=== PATIENT | male | born 1975 | race Hispanic/Latino ===

== ENCOUNTER 2020-05-18 13:00 | Inpatient (IN) | payer OTHER, SELFPAY ==
[2020-05-18 13:53] LABS: #Basophils 0.1 thou/uL (0.0-0.2); #Monocytes 0.3 thou/uL (0.11-0.59); #Neutrophils 5.5 thou/uL (1.40-6.50); %Basophils 0.8 % (0.0-1.0); %Eosinophils 0.1 % (0.0-10.0); %Lymphocytes 14.9 % (21.0-51.0); %Neutrophils 80.3 % (42.0-75.0); Hemoglobin 12.9 g/dL (14.0-18.0); Mean Corpuscular HGB CONC 35.4 g/dL (32.0-36.0); Mean Corpuscular Hemoglobin 33.3 pg (27.0-31.0); Mean Corpuscular Volume 94.2 fL (78.0-98.0); Mean Platelet Volume 7.2 fL (7.4-10.4); Platelet Count 203 thou/uL (130-400); RBC Distribution Width 11.6 % (11.5-14.5); Red Blood Cell (RBC) Count 3.88 mill/uL (4.70-6.10); White Blood Cell (WBC) Count 6.9 thou/uL (4.8-10.8)
[2020-05-18 14:18] LABS: ALT (SGPT) 35 U/L (8-55); AST (SGOT) 32 U/L (5-34); Albumin 3.2 g/dL (3.5-5.0); Alkaline Phosphatase 74 U/L (40-110); Anion Gap 16 mmol/L (10-20); BUN (Urea Nitrogen) 13 mg/dL (8.9-20.6); Bilirubin, Total 0.7 mg/dL (0.2-1.2); Calc. Creatinine Clearance 0 mL/min (70-130); Calcium 7.8 mg/dL (7.8-10.44); Carbon Dioxide 21 mmol/L (22-29); Chloride 100 mmol/L (98-107); Estimated GFR-MDRD 71; Globulin 3.8 g/dL (2.4-3.5); Glucose 309 mg/dL (70-105); Lipase 32 U/L (8-78); Potassium 3.9 mmol/L (3.5-5.1); Sodium 133 mmol/L (136-145)
[2020-05-18] MEDS ORDERED: cefTRIAXone\\ROCEPHIN 2 GM VIAL ONE (14:39)
[2020-05-18] MEDS ORDERED: Acetaminophen 500 MG TAB ONE (14:39)
[2020-05-18] MEDS ORDERED: Dexamethasone 10 MG/ML VIAL ONE (14:43)
[2020-05-18] MEDS ORDERED: Azithromycin 500 MG VIAL ONE (14:43)
[2020-05-18] MEDS ORDERED: Albuterol 200 PUFF (6.7GM INHALER) ONE (14:44)
--- NOTE | 2020-05-18 14:56 | RAD ---
XR Chest 1 View Portable History: Shortness of breath. COVID positive Comparison: Radiograph 2008 Findings: Extensive perihilar peripheral opacities throughout the lungs. No pneumothorax. No signific ant effusion. Increased left pericardiophrenic fat pad. No acute osseous abnormality. Impression: Common imaging findings of COVID-19 pneumonia. Other disease processes such as influenza pneumonia and organizing pneumonia, however can have a similar imaging appearance.
[2020-05-18 15:07] LABS: Actual Bicarbonate (HCO3a) 18.1 mEq/L (22-28); Analyzer IN Cardio ER; Base Excess (BEa) -2.6 mEq/L (-2.0 to +3.0); Calcium, Ionized (arterial) 1.05 mmol/L (1.12-1.30); Carboxyhemoglobin (COHb) 0.9 gm% (0.0-3.0); Hemoglobin (Hb) 15.7 g/dL (14.0-18.0); Potassium - ABG Lab 3.98 mmol/L (3.70-5.30); pH, Arterial 7.51 (7.35-7.45)
[2020-05-18 15:22] LABS: CO2 Tension 23.1 mmHg (35.0-45.0); O2 Tension (PaO2), arterial 42.2 mmHg (80.0-100.0)
[2020-05-18 15:23] LABS: ALV-art Gradient 356.725 (0-20); Puncture Site LRA
[2020-05-18 16:55] LABS: Lactic Acid 2.1 mmol/L (0.5-2.2)
[2020-05-18 18:09] VITALS: BMI 47.9
[2020-05-18] MEDS ORDERED: Albuterol 200 PUFF (6.7GM INHALER) INH PRN (18:26)
[2020-05-18] MEDS ORDERED: Acetaminophen 325 MG TAB PO PRN (18:26)
[2020-05-18] MEDS ORDERED: Ondansetron ODT 4 MG TAB PO PRN (18:29)
[2020-05-18] MEDS ORDERED: HYDROcodone/Acetaminophen 5/325 mg Tablet PO PRN (18:29)
[2020-05-18] MEDS ORDERED: Ondansetron PF 4 MG/2 ML Vial IVP PRN (18:29)
[2020-05-18] MEDS ORDERED: Sodium Chloride 0.9% 1,000 ML IV SCH (18:30)
--- NOTE | 2020-05-18 18:34 | PDOC.HHP ---
Hospitalist HPI - History of Present Illness fever chills sob History of Present Illness: Case of an 44 y/o male with pmhx of DM on metformin and htn who comes to hospital due to sob. patient refers he was on his usual state of health until 1 week ago when he started with fever chills and cough, he got tested for positive which came back positive and sent home to quarantine. patient states that 3-4 days ago he started feeling worse and started with dyspnea. dyspnea kept progressing until today when patient got scared and called ems. at the ED patient was diagnose with respiratory failure and hospitalist was called for further evaluation and management. patient hypoxic in low 80s required 80% 02 with high flow to get adequate saturation. pt also complained of nausea diarrhea and abdominal pain Hospitalist ROS - Review of Systems All other systems reviewed; all pertinent +/- noted in HPI/Subj Hospitalist History - Past Medical History Source: patient Cardiac: reports: HTN Endocrine: reports: Diabetes - Past Surgical History Past Surgical History: reports: no pertinent history - Family History Family History: reports: diabetes mellitus - Social History Smoking Status: Never smoker Alcohol: reports: Occassional Drugs: reports: none Living Situation: With Family Activity level: independent ambulation - Exam General Appearance: awake alert, ill appearing Eye: PERRL, anicteric sclera ENT: normocephalic atraumatic, no oropharyngeal lesions Neck: supple, symmetric, no JVD Heart: RRR, no murmur, no gallops Respiratory: CTAB, no wheezes, no rales, no ronchi, tachypneic Gastrointestinal: soft, non-tender, non-distended Extremities: no cyanosis, no clubbing, no edema Skin: normal turgor, no lesions, no rashes Neurological: cranial nerve grossly intact, normal sensation to touch Musculoskeletal: normal tone, normal strength, no muscle wasting Psychiatric: normal affect, normal behavior, A&O x 3 Hospitalist Results - Labs Result Diagrams: 05/18/20 13:35 05/18/20 13:35 Lab results: WBC 6.9 thou/uL (4.8-10.8) 05/18/20 13:35 Hgb 12.9 g/dL (14.0-18.0) L 05/18/20 13:35 Hct 36.6 % (42.0-52.0) L 05/18/20 13:35 MCV 94.2 fL (78.0-98.0) 05/18/20 13:35 Plt Count 203 thou/uL (130-400) 05/18/20 13:35 Neutrophils % 80.3 % (42.0-75.0) H 05/18/20 13:35 ABG pH 7.51 (7.35-7.45) H 05/18/20 15:00 ABG pCO2 23.1 mmHg (35.0-45.0) L* 05/18/20 15:00 ABG pO2 42.2 mmHg (80.0-100.0) L* 05/18/20 15:00 Sodium 133 mmol/L (136-145) L 05/18/20 13:35 Potassium 3.9 mmol/L (3.5-5.1) 05/18/20 13:35 Chloride 100 mmol/L (98-107) 05/18/20 13:35 Carbon Dioxide 21 mmol/L (22-29) L 05/18/20 13:35 BUN 13 mg/dL (8.9-20.6) 05/18/20 13:35 Creatinine 1.13 mg/dL (0.7-1.3) 05/18/20 13:35 Glucose 309 mg/dL (70-105) H 05/18/20 13:35 Lactic Acid 2.1 mmol/L (0.5-2.2) 05/18/20 16:28 Calcium 7.8 mg/dL (7.8-10.44) 05/18/20 13:35 Total Bilirubin 0.7 mg/dL (0.2-1.2) 05/18/20 13:35 AST 32 U/L (5-34) 05/18/20 13:35 ALT 35 U/L (8-55) 05/18/20 13:35 Alkaline Phosphatase 74 U/L (40-110) 05/18/20 13:35 Creatine Kinase 149 U/L (30-200) 05/18/20 13:33 Troponin I Less than 0.010 ng/mL (< 0.028) 05/18/20 13:33 Serum Total Protein 7.0 g/dL (6.0-8.3) 05/18/20 13:35 Albumin 3.2 g/dL (3.5-5.0) L 05/18/20 13:35 Lipase 32 U/L (8-78) 05/18/20 13:35 - Radiology Interpretation Chest x-ray Additional Comment: b/l peripheral opacities Hospitalist H&P A/P - Problem (1) Respiratory failure with hypoxia Code(s): J96.91 - RESPIRATORY FAILURE, UNSPECIFIED WITH HYPOXIA Status: Acute (2) Uncontrolled diabetes mellitus Code(s): E11.65 - TYPE 2 DIABETES MELLITUS WITH HYPERGLYCEMIA Status: Acute (3) HTN (hypertension) Code(s): I10 - ESSENTIAL (PRIMARY) HYPERTENSION Status: Acute (4) COVID-19 Code(s): U07.1 - COVID-19 Status: Acute (5) Morbidly obese Code(s): E66.01 - MORBID (SEVERE) OBESITY DUE TO EXCESS CALORIES Status: Acute - Plan Plan: 44y/o male with stated pmhx who comes to hospital due to respiratory failure, covid 19 + 1 week ago - rocephin + azythromycin prophylaxis - low dose steroids 6mg dexamethsone daily - high flow 02 supplementation, adjust as necessary - pulm / crit consulted - accu checks and ss - dvt prophylaxis - symptomatic prn tx for fever, nausea and pain -holding b/p medication until pt more stable
[2020-05-18] MEDS ORDERED: Dextrose 50% Abboject 50 ML SYRINGE SLOW IVP PRN (20:23)
[2020-05-18] MEDS ORDERED: Dextrose 5% in Water 1,000 ML IV PRN (20:23)
[2020-05-18] MEDS ORDERED: Insulin Glargine 10 UNITS in Pre-Filled Syringe 1 EACH SC SCH (21:00)
[2020-05-19 04:20] LABS: ALT (SGPT) 36 U/L (8-55); AST (SGOT) 29 U/L (5-34); Albumin 3.3 g/dL (3.5-5.0); Alkaline Phosphatase 79 U/L (40-110); Anion Gap 16 mmol/L (10-20); BUN (Urea Nitrogen) 16 mg/dL (8.9-20.6); Bilirubin, Total 0.6 mg/dL (0.2-1.2); Calc. Creatinine Clearance 209 mL/min (70-130); Carbon Dioxide 17 mmol/L (22-29); Chloride 102 mmol/L (98-107); Estimated GFR-MDRD 87; Globulin 3.9 g/dL (2.4-3.5); Glucose 377 mg/dL (70-105); Potassium 4.3 mmol/L (3.5-5.1); Protein, Total 7.2 g/dL (6.0-8.3); Sodium 131 mmol/L (136-145)
[2020-05-19 05:04] LABS: Band 10 % (5-11); Hemoglobin 13.1 g/dL (14.0-18.0); Lymphocytes 14 % (21-51); MDiff Complete? YES; Mean Corpuscular HGB CONC 33.9 g/dL (32.0-36.0); Mean Corpuscular Hemoglobin 32.1 pg (27.0-31.0); Mean Corpuscular Volume 94.7 fL (78.0-98.0); Mean Platelet Volume 7.5 fL (7.4-10.4); Monocytes 5 % (0-10); Neutrophil 71 % (42-75); Platelet Count 244 thou/uL (130-400); Platelet Morphology Comment Appears Adequate; RBC Distribution Width 11.7 % (11.5-14.5); Red Blood Cell (RBC) Count 4.09 mill/uL (4.70-6.10)
[2020-05-19] MEDS: Dexamethasone 4 mg/ml Vial SLOW IVP SCH (09:26)
[2020-05-19] MEDS: Enoxaparin Sodium 40 MG/0.4 ML SYRINGE SC SCH (09:26)
[2020-05-19] MEDS: HumaLOG 300 UNITS/3 ML VIAL SC PRN ×3 (09:41→23:38)
[2020-05-19] MEDS: HYDROcodone/Acetaminophen 5/325 mg Tablet PO PRN ×2 (09:45→16:10)
--- NOTE | 2020-05-19 14:13 | PDOC.HOSPP ---
- Subjective Encounter Date: 05/19/20 Encounter Time: 14:10 Subjective: f/u for COVID-19 with resp failure requiring high-flow O2. Apparently sx and diagnosed about 10 days previously. - Objective Vital Signs & Weight: Vital Signs (12 hours) Pulse Ox 05/19/20 07:46 93 L 05/19/20 05:07 93 L Weight Admit Weight 325 lb Weight 325 lb Most Recent Monitor Data Heart Rate from ECG 88 NIBP 163/107 NIBP BP-Mean 125 Respiration from ECG 30 SpO2 93 Result Diagrams: 05/19/20 03:27 05/19/20 03:27 Additional Labs: Accuchecks 05/19/20 05/18/20 09:44 20:26 POC Glucose 374 H 383 H Radiology Reviewed by me: Yes (PCXR - bilateral perihilar infiltrates) EKG Reviewed by me: Yes (Tele - SR) Hospitalist ROS - Medication Medications: Active Medications Generic Name Dose Route Start Last Admin Trade Name Freq PRN Reason Stop Dose Admin Hydrocodone Bitart/Acetaminophen 1 tab 05/18/20 18:29 05/19/20 09:45 [place] 5/325 PO 1 tab Q4H PRN Administration Moderate Pain (4-6) Dexamethasone 6 mg 05/19/20 09:00 05/19/20 09:26 Decadron SLOW IVP 6 mg DAILY TAMICA Administration Enoxaparin Sodium 40 mg 05/19/20 09:00 05/19/20 09:26 Lovenox SC 40 mg 0900 TAMICA Administration Insulin Glargine 10 units/ 0.1 mls @ 0 mls/hr 05/18/20 21:00 05/18/20 21:29 Miscellaneous Medication SC 0.1 mls HS TAMICA Administration Insulin Human Lispro 0 units 05/18/20 20:23 05/19/20 09:41 Humalog SC 6 units .MILD SLIDING SCALE PRN Administration Mild Correctional Scale - Exam General Appearance: NAD Eye: PERRL, anicteric sclera ENT: normocephalic atraumatic, no oropharyngeal lesions Neck: supple, symmetric, no JVD, no thyromegaly, no lymphadenopathy Heart: RRR, no murmur, no gallops, no rubs, normal peripheral pulses Heart - other findings: S1, S2 Respiratory: tachypneic Respiratory - other findings: diminished bilat, occasional rhonchi Gastrointestinal: soft, non-tender, non-distended, normal bowel sounds, no palpable masses, no guarding Extremities: no cyanosis, no clubbing, no edema Skin: normal turgor, no lesions Neurological: cranial nerve grossly intact, no new deficit Musculoskeletal: normal tone, normal strength Psychiatric: normal affect, A&O x 3 Hosp A/P (1) Pneumonia due to COVID-19 virus Code(s): U07.1 - COVID-19; J12.89 - OTHER VIRAL PNEUMONIA Status: Acute Plan: Continue Rocephin/Zithromax/Dexamethasone (2) Acute respiratory failure with hypoxia Code(s): J96.01 - ACUTE RESPIRATORY FAILURE WITH HYPOXIA Status: Acute Plan: Continue high-flow O2 @ 60L/min, titrate to clinical response (3) HTN (hypertension) Code(s): I10 - ESSENTIAL (PRIMARY) HYPERTENSION Status: Chronic Qualifiers: Hypertension type: essential hypertension Qualified Code(s): I10 - Essential (primary) hypertension Plan: Start Hydralazine 25mg TID, likely resume Lisinopril prior to d/c (4) Morbidly obese Code(s): E66.01 - MORBID (SEVERE) OBESITY DUE TO EXCESS CALORIES Status: Chronic (5) Uncontrolled diabetes mellitus Code(s): E11.65 - TYPE 2 DIABETES MELLITUS WITH HYPERGLYCEMIA Status: Chronic Plan: Likely exacerbated by steroids, increase Lantus 15u HS, continue ISS, Metformin - Plan continue antibiotics, high school social studies tutor, respiratory therapy, DVT proph w/SCDs Continue pulmonary support High flow O2 support Albuterol MDI Continue Azithromycin/Rocephin/Dexamethasone OOB/ambulate Start Hydralazine 25mg TID AM lab: BMP, A1C
[2020-05-19] MEDS: cefTRIAXone\\ROCEPHIN 2 GM in Sodium Chloride 0.9% 100 ML IVPB SCH (16:07)
[2020-05-19] MEDS: hydrALAZINE 25 MG TAB PO SCH ×2 (16:08→20:13)
[2020-05-19] MEDS: metFORMIN 500 MG TAB PO SCH (16:08)
[2020-05-19] MEDS: Azithromycin 500 MG in Sodium Chloride 0.9% 250 ML 250 ML IVPB SCH (17:12)
--- NOTE | 2020-05-19 20:58 | CON ---
DATE OF CONSULTATION: 05/19/2020 REASON FOR CONSULTATION: COVID-19 pneumonia with pulmonary complications. HISTORY OF PRESENT ILLNESS: The patient is a 44-year-old male, who began feeling sick on May 09. At that time, he was working in [place]. By the time he arrived at work the next Thursday, he was short of breath and have a GI symptoms. He was swabbed for COVID, eventually told he was positive. He came back to this area and steadily been getting worse for the last week. He tells me he was admitted to the hospital here three days ago, but in actuality, it looks like he was admitted yesterday. He is currently on high-flow oxygen. He has bilateral pulmonary infiltrates. PAST MEDICAL HISTORY: 1. Hypertension. 2. Diabetes mellitus. 3. Morbid obesity. PAST SURGICAL HISTORY: None. FAMILY MEDICAL: Remarkable for diabetes mellitus. SOCIAL HISTORY: Never smoker. Very occasionally drinks alcohol. He works as a drill setup operator. Does not use illicit drugs. REVIEW OF SYSTEMS: Otherwise negative. ALLERGIES: NONE. PHYSICAL EXAMINATION: VITAL SIGNS: Temperature 98, pulse 97, O2 saturation 97% high-flow oxygen, blood pressure 170/107. The patient is 5 feet 9 inches and weighs 325 pounds. HEENT: Unremarkable. NECK: No adenopathy or JVD. LUNGS: Inspiratory crackles bilaterally. CARDIOVASCULAR: S1 and S2. Tachycardic. ABDOMEN: Soft and nontender. EXTREMITIES: No edema. LABORATORY DATA: White blood cell count 5, hematocrit 38.8, and platelet count 244. ABG; pH of 7.51, pCO2 of 23, and pO2 of 42, that was on high-flow 60% yesterday. Sodium 131, potassium 4.3, chloride 102, CO2 of 17, BUN 16, creatinine 0.9, and glucose 377. ASSESSMENT: COVID-19 pneumonia with bilateral severe infiltrates on x-ray, currently responding to high-flow oxygen. PLAN: 1. The patient is probably outside the window, where plasma transfusion would do any good. He is more than 10 days in this and probably has already made antibodies. We can check an antibody panel. 2. He is beyond the point, where Remdesivir or the IL-6 inhibitor would do any good. 3. Agree with high-flow oxygen and steroids. We will follow. 4. I have asked him to produce documentation of the positive COVID test. Job ID: [id number]
[2020-05-19] MEDS ORDERED: Insulin Glargine 15 UNITS in Pre-Filled Syringe 1 EACH SC SCH (21:00)
[2020-05-20 04:27] LABS: Anion Gap 15 mmol/L (10-20); BUN (Urea Nitrogen) 26 mg/dL (8.9-20.6); Calc. Creatinine Clearance 214 mL/min (70-130); Carbon Dioxide 18 mmol/L (22-29); Chloride 104 mmol/L (98-107); Estimated GFR-MDRD 89; Glucose 402 mg/dL (70-105); Potassium 4.5 mmol/L (3.5-5.1); Sodium 132 mmol/L (136-145)
[2020-05-20 05:57] LABS: Hemoglobin A1c 11.2 % (4.0-6.0)
[2020-05-20] MEDS: HumaLOG 300 UNITS/3 ML VIAL SC PRN ×4 (06:11→22:22)
[2020-05-20] MEDS: hydrALAZINE 25 MG TAB PO SCH ×3 (08:46→21:50)
[2020-05-20] MEDS: metFORMIN 500 MG TAB PO SCH ×2 (08:46→17:25)
[2020-05-20] MEDS: Dexamethasone 4 mg/ml Vial SLOW IVP SCH (08:46)
[2020-05-20] MEDS: HYDROcodone/Acetaminophen 5/325 mg Tablet PO PRN (08:47)
[2020-05-20] MEDS: Enoxaparin Sodium 40 MG/0.4 ML SYRINGE SC SCH (08:47)
--- NOTE | 2020-05-20 13:24 | PDOC.HOSPP ---
- Subjective Encounter Date: 05/20/20 Encounter Time: 13:20 Subjective: f/u for COVID-19 PNA on Rocephin/Zithromax/Dexamethasone. Remains on high-flow O2 @ 50L/min NC. - Objective Vital Signs & Weight: Vital Signs (12 hours) Temp Pulse BP Pulse Ox 05/20/20 08:46 77 152/100 H 05/20/20 08:30 100 05/20/20 07:53 98 05/20/20 06:00 99.1 F Weight Admit Weight 325 lb Weight 325 lb Most Recent Monitor Data Heart Rate from ECG 86 NIBP 146/97 NIBP BP-Mean 113 Respiration from ECG 40 SpO2 98 I&O: 05/19/20 05/20/20 05/21/20 06:59 06:59 06:59 Intake Total 2550 Output Total 3075 Balance -525 Result Diagrams: 05/19/20 03:27 05/20/20 03:29 Additional Labs: Accuchecks 05/20/20 05/19/20 05/19/20 06:24 23:52 20:30 POC Glucose 379 H 419 H 425 H 05/19/20 16:22 POC Glucose 427 H Microbiology 05/18/20 13:29 Venous blood - Right Hand Blood Culture - Preliminary Specimen has been received and culture in progress. No Growth to date. 05/18/20 13:29 Venous blood - Right Hand Blood Culture - Preliminary NO GROWTH AT 48 HOURS 05/18/20 13:20 Venous blood - Left Arm Blood Culture - Preliminary Specimen has been received and culture in progress. No Growth to date. 05/18/20 13:20 Venous blood - Left Arm Blood Culture - Preliminary NO GROWTH AT 48 HOURS Laboratory Tests 05/18/20 05/18/20 13:35 16:28 Sodium 133 L Creatinine 1.13 Lactic Acid 2.1 EKG Reviewed by me: Yes (Tele - SR) Hospitalist ROS - Medication Medications: Active Medications Generic Name Dose Route Start Last Admin Trade Name Freq PRN Reason Stop Dose Admin Hydrocodone Bitart/Acetaminophen 1 tab 05/18/20 18:29 05/20/20 08:47 [place] 5/325 PO 1 tab Q4H PRN Administration Moderate Pain (4-6) Dexamethasone 6 mg 05/19/20 09:00 05/20/20 08:46 Decadron SLOW IVP 6 mg DAILY TAMICA Administration Enoxaparin Sodium 40 mg 05/19/20 09:00 05/20/20 08:47 Lovenox SC 40 mg 0900 TAMICA Administration Hydralazine HCl 25 mg 05/19/20 15:00 05/20/20 08:46 Apresoline PO 25 mg TID TAMICA Administration Azithromycin 500 mg/ Sodium 250 mls @ 250 mls/hr 05/19/20 15:00 05/19/20 17: 12 Chloride IVPB 250 mls Q24HR TAMICA Administration Ceftriaxone Sodium 2 gm/ 100 mls @ 200 mls/hr 05/19/20 14:00 05/19/20 16:07 Sodium Chloride IVPB 100 mls Q24HR TAMICA Administration Insulin Glargine 15 units/ 0.15 mls @ 0 mls/hr 05/19/20 21:00 05/19/20 20:13 Miscellaneous Medication SC 0.15 mls HS TAMICA Administration As Directed Insulin Human Lispro 0 units 05/18/20 20:23 05/20/20 11:25 Humalog SC 6 units .MILD SLIDING SCALE PRN Administration Mild Correctional Scale Insulin Human Lispro 0 units 05/19/20 23:23 05/19/20 23:38 Humalog SC 5 unit .BEDTIME SLIDING SC PRN Administration Bedtime Correctional Scale Metformin HCl 1,000 mg 05/19/20 17:00 05/20/20 08:46 Glucophage PO 1,000 mg BID-WM TAMICA Administration - Exam General Appearance: awake alert General - other findings: resp distress, high-flow NC in place Eye: PERRL, anicteric sclera ENT: normocephalic atraumatic, no oropharyngeal lesions Neck: supple, symmetric, no JVD, no thyromegaly, no lymphadenopathy Heart: RRR, no murmur, no gallops, no rubs, normal peripheral pulses Heart - other findings: S1, S2 Respiratory: no ronchi, tachypneic Respiratory - other findings: diminished in bases bilat Gastrointestinal: soft, non-tender, non-distended, normal bowel sounds, no palpable masses Extremities: no cyanosis, no clubbing, no edema Skin: normal turgor, no lesions Neurological: cranial nerve grossly intact, no new deficit Musculoskeletal: normal tone, normal strength, no muscle wasting Psychiatric: normal affect, A&O x 3 Hosp A/P (1) Pneumonia due to COVID-19 virus Code(s): U07.1 - COVID-19; J12.89 - OTHER VIRAL PNEUMONIA Status: Acute Plan: continue Rocephin/Zithromax, Albuterol MDI, Dexamethasone (2) Acute respiratory failure with hypoxia Code(s): J96.01 - ACUTE RESPIRATORY FAILURE WITH HYPOXIA Status: Acute Plan: Continue high-flow O2 weaning as tolerated (3) HTN (hypertension) Code(s): I10 - ESSENTIAL (PRIMARY) HYPERTENSION Status: Chronic Qualifiers: Hypertension type: essential hypertension Qualified Code(s): I10 - Essential (primary) hypertension (4) Morbidly obese Code(s): E66.01 - MORBID (SEVERE) OBESITY DUE TO EXCESS CALORIES Status: Chronic (5) Uncontrolled diabetes mellitus Code(s): E11.65 - TYPE 2 DIABETES MELLITUS WITH HYPERGLYCEMIA Status: Chronic Plan: Increase Glargine 20u HS, ISS - Plan continue antibiotics, social problems specialist, respiratory therapy, DVT proph w/SCDs Continue pulmonary support High flow O2 support Albuterol MDI 2 puffs q4h prn Continue Azithromycin/Rocephin/Dexamethasone OOB/ambulate Start Hydralazine 25mg TID Increase Glargine 20u HS
[2020-05-20] MEDS ORDERED: Albuterol 200 PUFF (6.7GM INHALER) INH PRN (13:45)
[2020-05-20] MEDS: Azithromycin 500 MG in Sodium Chloride 0.9% 250 ML 250 ML IVPB SCH (14:21)
[2020-05-20] MEDS: cefTRIAXone\\ROCEPHIN 2 GM in Sodium Chloride 0.9% 100 ML IVPB SCH (14:22)
--- NOTE | 2020-05-20 14:24 | PRG ---
DATE OF SERVICE: 05/20/2020 SUBJECTIVE: The patient feels a little better today. He remains on high-flow oxygen at 48% FiO2. OBJECTIVE: VITAL SIGNS: On exam, his temperature is 99.1, pulse 86, blood pressure 146/97, and O2 saturation 98%. HEENT: Unremarkable. NECK: No adenopathy or JVD. CHEST: Clear. CARDIAC: S1 and S2. Regular. ABDOMEN: Soft. EXTREMITIES: No edema. LABORATORY DATA: BUN 26, creatinine 0.9, sodium 132, and glucose 385. ASSESSMENT: COVID-19 pneumonia. PLAN: Continue treatment with steroids, high-flow oxygen and give him time. He seems to be improving slowly. Job ID: [id number]
[2020-05-20 17:45] LABS: SARS-CoV-2 IgG Ab Reactive (NonReactive); SARS-CoV-2 IgG Index 5.99 S/CO (< 1.40)
[2020-05-20] MEDS: Insulin Glargine 20 UNITS in Pre-Filled Syringe 1 EACH SC SCH (21:51)
[2020-05-21] MEDS: HumaLOG 300 UNITS/3 ML VIAL SC PRN ×5 (06:31→21:27)
[2020-05-21] MEDS: hydrALAZINE 25 MG TAB PO SCH ×3 (08:35→21:00)
[2020-05-21] MEDS: metFORMIN 500 MG TAB PO SCH ×2 (08:35→16:58)
[2020-05-21] MEDS: Dexamethasone 4 mg/ml Vial SLOW IVP SCH (08:35)
[2020-05-21] MEDS: Enoxaparin Sodium 40 MG/0.4 ML SYRINGE SC SCH (08:37)
[2020-05-21] MEDS: cefTRIAXone\\ROCEPHIN 2 GM in Sodium Chloride 0.9% 100 ML IVPB SCH (11:33)
--- NOTE | 2020-05-21 12:44 | PRG ---
DATE OF SERVICE: 05/21/2020 SUBJECTIVE: This patient remains on high-flow nasal cannula at 50%, his oxygen saturation is 100%. He still tachypneic. His COVID-19 test shows that he has developed IgG antibodies. PHYSICAL EXAMINATION: Otherwise unchanged. ASSESSMENT: COVID-19 pneumonia. PLAN: He is past the point where anti-infectives or plasma would do any good. I would recommend weaning his oxygen. He is stable for transfer to the observational unit. Job ID: [id number]
[2020-05-21] MEDS: Azithromycin 500 MG in Sodium Chloride 0.9% 250 ML 250 ML IVPB SCH (13:36)
--- NOTE | 2020-05-21 18:12 | PDOC.HOSPP ---
- Subjective Encounter Date: 05/21/20 Encounter Time: 18:10 Subjective: f/u for COVID-19 with + IgG ab's. Remains on high-flow O2 via NC @ 50L/min. - Objective Vital Signs & Weight: Vital Signs (12 hours) Temp Pulse Ox 05/21/20 17:00 98.3 F 05/21/20 12:00 98.7 F 05/21/20 08:00 98.3 F 95 Weight Admit Weight 325 lb Weight 325 lb Most Recent Monitor Data Heart Rate from ECG 69 NIBP 151/105 NIBP BP-Mean 120 Respiration from ECG 30 SpO2 100 I&O: 05/20/20 05/21/20 05/22/20 06:59 06:59 06:59 Intake Total 2550 1350 Output Total 3075 750 Balance -525 600 Result Diagrams: 05/19/20 03:27 05/20/20 03:29 Additional Labs: Accuchecks 05/21/20 05/21/20 05/20/20 11:43 06:24 22:03 POC Glucose 296 H 331 H 341 H 05/20/20 17:36 POC Glucose 362 H EKG Reviewed by me: Yes (Tele - SR) Hospitalist ROS - Medication Medications: Active Medications Generic Name Dose Route Start Last Admin Trade Name Freq PRN Reason Stop Dose Admin Hydrocodone Bitart/Acetaminophen 1 tab 05/18/20 18:29 05/20/20 08:47 [place] 5/325 PO 1 tab Q4H PRN Administration Moderate Pain (4-6) Dexamethasone 6 mg 05/19/20 09:00 05/21/20 08:35 Decadron SLOW IVP 6 mg DAILY TAMICA Administration Enoxaparin Sodium 40 mg 05/19/20 09:00 05/21/20 08:37 Lovenox SC 40 mg 0900 TAMICA Administration Hydralazine HCl 25 mg 05/19/20 15:00 05/21/20 16:59 Apresoline PO 25 mg TID ATMICA Administration Azithromycin 500 mg/ Sodium 250 mls @ 250 mls/hr 05/19/20 15:00 05/21/20 13: 36 Chloride IVPB 05/21/20 23:59 250 mls Q24HR TAMICA Administration Ceftriaxone Sodium 2 gm/ 100 mls @ 200 mls/hr 05/19/20 14:00 05/21/20 11:33 Sodium Chloride IVPB 100 mls Q24HR TAMICA Administration Insulin Glargine 20 units/ 0.2 mls @ 0 mls/hr 05/20/20 21:00 05/20/20 21:51 Miscellaneous Medication SC 0.2 mls HS TAMICA Administration As Directed Insulin Human Lispro 0 units 05/19/20 23:23 05/20/20 22:22 Humalog SC 4 unit .BEDTIME SLIDING SC PRN Administration Bedtime Correctional Scale Insulin Human Lispro 0 units 05/20/20 14:17 05/21/20 17:07 Humalog SC 11 unit .AGGRESSIVE SLIDING PRN Administration AGGRESSIVE SLIDING SCALE Protocol Metformin HCl 1,000 mg 05/19/20 17:00 05/21/20 16:58 Glucophage PO 1,000 mg BID-WM TAMICA Administration - Exam General Appearance: NAD, awake alert General - other findings: high flow NC in place Eye: PERRL, anicteric sclera ENT: normocephalic atraumatic, no oropharyngeal lesions Neck: supple, symmetric, no JVD, no thyromegaly, no lymphadenopathy Heart: RRR, no gallops, no rubs, normal peripheral pulses Heart - other findings: S1, S2 Respiratory: tachypneic Respiratory - other findings: diminished in bases Gastrointestinal: soft, non-tender, non-distended, normal bowel sounds, no palpable masses Extremities: no cyanosis, no clubbing, no edema Skin: normal turgor, no lesions Neurological: cranial nerve grossly intact, no new deficit Musculoskeletal: normal tone, normal strength, no muscle wasting Psychiatric: normal affect, A&O x 3 Hosp A/P (1) Pneumonia due to COVID-19 virus Code(s): U07.1 - COVID-19; J12.89 - OTHER VIRAL PNEUMONIA Status: Acute Plan: Continue current Rocephin/Zithromax/Albuterol, wean high-flow O2 as clinically indicated (2) Acute respiratory failure with hypoxia Code(s): J96.01 - ACUTE RESPIRATORY FAILURE WITH HYPOXIA Status: Acute (3) HTN (hypertension) Code(s): I10 - ESSENTIAL (PRIMARY) HYPERTENSION Status: Chronic Qualifiers: Hypertension type: essential hypertension Qualified Code(s): I10 - Essential (primary) hypertension (4) Morbidly obese Code(s): E66.01 - MORBID (SEVERE) OBESITY DUE TO EXCESS CALORIES Status: Chronic (5) Uncontrolled diabetes mellitus Code(s): E11.65 - TYPE 2 DIABETES MELLITUS WITH HYPERGLYCEMIA Status: Chronic Plan: Add Glargine 20u sc qam and continue 20u qhs - Plan Continue pulmonary support High flow O2 support Albuterol MDI 2 puffs q4h prn Continue Azithromycin/Rocephin/Dexamethasone OOB/ambulate Hydralazine 25mg TID Increase Glargine 20u BID Transfer to medical floor
[2020-05-21] MEDS: Insulin Glargine 20 UNITS in Pre-Filled Syringe 1 EACH SC SCH (20:59)
[2020-05-22 00:49] LABS: Actual Bicarbonate (HCO3a) 19.9 mEq/L (22-28); Base Excess (BEa) -1.8 mEq/L (-2.0 to +3.0); CO2 Tension 26.4 mmHg (35.0-45.0); Calcium, Ionized (arterial) 1.18 mmol/L (1.12-1.30); Carboxyhemoglobin (COHb) 1.2 gm% (0.0-3.0); Hemoglobin (Hb) 13.8 g/dL (14.0-18.0); O2 Tension (PaO2), arterial 70.3 mmHg (80.0-100.0); Potassium - ABG Lab 3.98 mmol/L (3.70-5.30)
[2020-05-22 01:56] LABS: Puncture Site RRA
[2020-05-22] MEDS: Albuterol 200 PUFF (6.7GM INHALER) INH SCH ×6 (03:00→23:29)
[2020-05-22] MEDS: HumaLOG 300 UNITS/3 ML VIAL SC PRN ×4 (05:36→21:15)
[2020-05-22] MEDS: hydrALAZINE 25 MG TAB PO SCH ×3 (08:26→21:01)
[2020-05-22] MEDS: Dexamethasone 4 mg/ml Vial SLOW IVP SCH (08:27)
[2020-05-22] MEDS: metFORMIN 500 MG TAB PO SCH ×2 (08:27→17:04)
[2020-05-22] MEDS: Azithromycin 250 MG TAB PO SCH (08:27)
[2020-05-22] MEDS: Insulin Glargine 20 UNITS in Pre-Filled Syringe 1 EACH SC SCH ×2 (08:28→21:01)
[2020-05-22] MEDS: Enoxaparin Sodium 40 MG/0.4 ML SYRINGE SC SCH (08:28)
[2020-05-22] MEDS: cefTRIAXone\\ROCEPHIN 2 GM in Sodium Chloride 0.9% 100 ML IVPB SCH (15:06)
[2020-05-22] MEDS: Guaifenesin DM 100-10/5 ML UDCUP PO PRN ×2 (17:05→21:18)
--- NOTE | 2020-05-22 19:43 | PDOC.HOSPP ---
- Subjective Encounter Date: 05/22/20 Encounter Time: 17:30 Subjective: f/u for COVID PNA and hypoxic resp failure. Off high-flow O2 maintaining saturations on 4L/min NC. - Objective Vital Signs & Weight: Vital Signs (12 hours) Temp Pulse Resp BP Pulse Ox 05/22/20 19:30 98.7 F 77 28 H 108/71 97 05/22/20 11:03 98.2 F 76 34 H 98/65 97 05/22/20 08:00 97 Weight Admit Weight 325 lb Weight 325 lb Most Recent Monitor Data Heart Rate from ECG 79 NIBP 151/105 NIBP BP-Mean 120 Respiration from ECG 40 SpO2 96 I&O: 05/21/20 05/22/20 05/23/20 06:59 06:59 06:59 Intake Total 1350 Output Total 750 Balance 600 Result Diagrams: 05/19/20 03:27 05/20/20 03:29 Additional Labs: Accuchecks 05/22/20 05/22/20 05/22/20 16:40 10:44 05:42 POC Glucose 340 H 237 H 218 H 05/21/20 05/21/20 05/21/20 21:14 17:16 13:51 POC Glucose 245 H 312 H 330 H Microbiology 05/18/20 13:29 Venous blood - Right Hand Blood Culture - Preliminary Specimen has been received and culture in progress. No Growth to date. 05/18/20 13:29 Venous blood - Right Hand Blood Culture - Preliminary NO GROWTH AT 48 HOURS 05/18/20 13:20 Venous blood - Left Arm Blood Culture - Preliminary Specimen has been received and culture in progress. No Growth to date. 05/18/20 13:20 Venous blood - Left Arm Blood Culture - Preliminary NO GROWTH AT 48 HOURS Laboratory Tests 05/18/20 05/18/20 05/19/20 13:35 16:28 14:23 Sodium 133 L Creatinine 1.13 Lactic Acid 2.1 SARS-CoV-2 IgG Ab Reactive SARS-CoV-2 IgG Ab Index 5.99 Hospitalist ROS - Medication Medications: Active Medications Generic Name Dose Route Start Last Admin Trade Name Freq PRN Reason Stop Dose Admin Hydrocodone Bitart/Acetaminophen 1 tab 05/18/20 18:29 05/20/20 08:47 [place] 5/325 PO 1 tab Q4H PRN Administration Moderate Pain (4-6) Albuterol Sulfate 2 puff 05/22/20 02:00 05/22/20 17:46 Proventil Hfa INH 2 puff Q4H TAMICA Administration Azithromycin 500 mg 05/22/20 09:00 05/22/20 08:27 Zithromax PO 500 mg DAILY TAMICA Administration Dexamethasone 6 mg 05/19/20 09:00 05/22/20 08:27 Decadron SLOW IVP 6 mg DAILY TAMICA Administration Enoxaparin Sodium 40 mg 05/19/20 09:00 05/22/20 08:28 Lovenox SC 40 mg 0900 TAMICA Administration Guaifenesin/Dextromethorphan 15 ml 05/18/20 18:29 05/22/20 17:05 Robitussin Dm PO 15 ml Q4H PRN Administration Cough Hydralazine HCl 25 mg 05/19/20 15:00 05/22/20 15:06 Apresoline PO Not Given TID TAMICA Ceftriaxone Sodium 2 gm/ 100 mls @ 200 mls/hr 05/19/20 14:00 05/22/20 15:06 Sodium Chloride IVPB 100 mls Q24HR TAMICA Administration Insulin Glargine 20 units/ 0.2 mls @ 0 mls/hr 05/20/20 21:00 05/21/20 20:59 Miscellaneous Medication SC 0.2 mls HS TAMICA Administration As Directed Insulin Glargine 20 units/ 0.2 mls @ 0 mls/hr 05/22/20 09:00 05/22/20 08:28 Miscellaneous Medication SC 0.2 mls QAM TAMICA Administration Insulin Human Lispro 0 units 05/19/20 23:23 05/21/20 21:27 Humalog SC 2 unit .BEDTIME SLIDING SC PRN Administration Bedtime Correctional Scale Insulin Human Lispro 0 units 05/20/20 14:17 05/22/20 17:05 Humalog SC 11 unit .AGGRESSIVE SLIDING PRN Administration AGGRESSIVE SLIDING SCALE Protocol Metformin HCl 1,000 mg 05/19/20 17:00 05/22/20 17:04 Glucophage PO 1,000 mg BID-WM TAMICA Administration - Exam General Appearance: NAD, awake alert Eye: PERRL, anicteric sclera ENT: normocephalic atraumatic, no oropharyngeal lesions Neck: supple, symmetric, no JVD, no thyromegaly, no lymphadenopathy Heart: RRR, no gallops, no rubs, normal peripheral pulses Heart - other findings: S1, S2 Respiratory - other findings: diminished in bases, mild tachypnea Gastrointestinal: soft, non-tender, non-distended, normal bowel sounds, no palpable masses Extremities: no cyanosis, no clubbing, no edema Skin: normal turgor, no lesions Neurological: cranial nerve grossly intact, no new deficit Musculoskeletal: normal tone, normal strength, no muscle wasting Psychiatric: normal affect, A&O x 3 Hosp A/P (1) Pneumonia due to COVID-19 virus Code(s): U07.1 - COVID-19; J12.89 - OTHER VIRAL PNEUMONIA Status: Acute Plan: Continue Zithromax/Dexamethasone/Albuterol, O2 support weaning as clinically indicated (2) Acute respiratory failure with hypoxia Code(s): J96.01 - ACUTE RESPIRATORY FAILURE WITH HYPOXIA Status: Acute Plan: Off high-flow currently, continue 4L/min NC (3) HTN (hypertension) Code(s): I10 - ESSENTIAL (PRIMARY) HYPERTENSION Status: Chronic Qualifiers: Hypertension type: essential hypertension Qualified Code(s): I10 - Essential (primary) hypertension (4) Morbidly obese Code(s): E66.01 - MORBID (SEVERE) OBESITY DUE TO EXCESS CALORIES Status: Chronic (5) Uncontrolled diabetes mellitus Code(s): E11.65 - TYPE 2 DIABETES MELLITUS WITH HYPERGLYCEMIA Status: Chronic Plan: Labile due to Dexamethasone - Plan continue antibiotics, social media director, respiratory therapy, out of bed/ambulate , DVT proph w/SCDs Continue pulmonary support High flow O2 support d/c Wean off NC as clinically indicated Albuterol MDI 2 puffs q4h prn Continue Azithromycin/Rocephin/Dexamethasone OOB/ambulate Hydralazine 25mg TID Increase Glargine 20u BID Transfer to medical floor Likely home in 24-48h
[2020-05-23] MEDS: Albuterol 200 PUFF (6.7GM INHALER) INH SCH ×4 (03:09→15:09)
[2020-05-23] MEDS: HumaLOG 300 UNITS/3 ML VIAL SC PRN ×2 (05:24→12:26)
[2020-05-23] MEDS: metFORMIN 500 MG TAB PO SCH (08:26)
[2020-05-23] MEDS: Azithromycin 250 MG TAB PO SCH (08:26)
[2020-05-23] MEDS: Dexamethasone 4 mg/ml Vial SLOW IVP SCH (08:26)
[2020-05-23] MEDS: Enoxaparin Sodium 40 MG/0.4 ML SYRINGE SC SCH (08:27)
[2020-05-23] MEDS: Insulin Glargine 20 UNITS in Pre-Filled Syringe 1 EACH SC SCH (08:27)
[2020-05-23] MEDS: Guaifenesin DM 100-10/5 ML UDCUP PO PRN (08:44)
[2020-05-23 09:40] VITALS: TEMP 98.1
[2020-05-23] MEDS: hydrALAZINE 25 MG TAB PO SCH ×2 (10:34→15:10)
[2020-05-23] MEDS: cefTRIAXone\\ROCEPHIN 2 GM in Sodium Chloride 0.9% 100 ML IVPB SCH (15:09)
[2020-05-23 15:43] VITALS: BP 115/76
--- NOTE | 2020-05-23 22:01 | DIS ---
DATE OF ADMISSION: 05/18/2020 DATE OF DISCHARGE: 05/23/2020 DISCHARGE DIAGNOSES: 1. Pneumonia due to COVID-19 viral infection. 2. Acute hypoxic respiratory failure with oxygen at 2 L/minute by nasal cannula. 3. Hypertension, labile. 4. Diabetes mellitus type 2, labile secondary to steroids. 5. Morbid obesity. CONSULTATIONS: Dr. Pitts with Pulmonology Service. PERTINENT LABORATORY AND X-RAY FINDINGS: Hemoglobin A1c 11.2. Lactic acid level ranged between 2.1 to 2.5. CBC within normal limits. SARS-CoV-2 IgG antibody reactive, 05/19/2020. Blood cultures x2 dated 05/18/2020, showed no growth at 48 hours. Portable chest x-ray dated 05/18/2020, showed extensive perihilar opacities throughout bilateral lung parry. HOSPITAL COURSE: The patient was admitted to the intermediate care unit after presenting with increased shortness of breath with associated fever, chills and cough. The patient was noted with positive COVID-19 by PCR and placed in the isolation protocol. The patient received bronchodilator therapy in addition to IV Solu-Medrol and IV antibiotics with azithromycin and Rocephin. The patient required high-flow oxygen by nasal cannula up to 50 L/minute and had difficulty weaning off oxygen supplementation. The patient did improve in oxygenation status by the time of discharge, however, remained on 2 L/minute by nasal cannula. The patient was evaluated by the Pulmonology Service with recommendations for general supportive management including antibiotic therapy with steroid therapy. The patient also received bronchodilator therapy with some improvement in symptoms. Overall, the patient did remain clinically stable during the hospital course, tolerating regular oral intake with stable vital signs. I have examined the patient at the time of discharge and discussed followup instructions. The patient verbalized understanding and agreement ready for discharge on 05/23/2020. DISCHARGE MEDICATIONS: 1. Tessalon Perles 100 mg p.o. q.8 hours p.r.n. 2. Lisinopril/hydrochlorothiazide 20/12.5 mg one tablet p.o. daily. 3. Metformin 1000 mg p.o. b.i.d. 4. Proventil HFA 2 puffs inhaled q.4 hours p.r.n. 5. Azithromycin 500 mg p.o. daily x5 days. 6. Hydralazine 25 mg p.o. t.i.d. 7. Prednisone 20 mg take 2 tablets p.o. daily x3 days, followed by 1 tablet p.o. daily x3 days, followed by half a tablet p.o. daily x3 days. FOLLOWUP: The patient may follow up with his primary care provider, Chasity Priest, within 7 days of discharge. CONDITION ON DISCHARGE: Stable. ACTIVITY: Ad-karey. DIET: Heart healthy and ADA. CODE STATUS: Full. DISPOSITION: Home, 05/23/2020. TIME SPENT: Total time preparing and coordinating discharge is 36 minutes. Job ID: [id number]
--- NOTE | 2020-05-27 12:27 | EKG ---
Test Reason : Blood Pressure : / mmHG Vent. Rate : 098 BPM Atrial Rate : 098 BPM P-R Int : 154 ms QRS Dur : 092 ms QT Int : 370 ms P-R-T Axes : 024 010 002 degrees QTc Int : 472 ms Normal sinus rhythm Normal ECG Confirmed by PRADEEP BAEZ DO ([id number]), department editor TYLER VALIENTE ([id number]) on 05/27/2020 12:26:34 PM Referred By: Confirmed By:PRADEEP BAEZ DO
== END 2020-05-23 15:44 | disposition home or self-care (01) | DRG 177 ==
LOC: ERS 13:00 → IMCU/EMU 16:14 → T4-A 05-21 19:12
PROVIDERS: ADMIT Internal Medicine; ATTEND Internal Medicine
PROC: 8E0ZXY6 Isolation (ICD-10-PCS; principal; 2020-05-18)
DX: U07.1 COVID-19 (principal); J12.89 Other viral pneumonia; J96.01 Acute respiratory failure with hypoxia; Z68.42 Body mass index [BMI] 45.0-49.9, adult; I10 Essential (primary) hypertension; E66.01 Morbid (severe) obesity due to excess calories; M54.5 Low back pain; G89.29 Other chronic pain; E11.65 Type 2 diabetes mellitus with hyperglycemia; Z79.84 Long term (current) use of oral hypoglycemic drugs
CPT/HCPCS: 36415; 36416; 71045; 80048; 80053; 82550; 82805; 83036; 83605; 83690; 84484; 85025; 86769; 87040; 93005; 94760; 96361; 96365; 96375; J0456; J0696; J1100; J1650; J1815; J3490; J7050